=== PATIENT | male | born 1990 | race Caucasian/White ===

== ENCOUNTER 2022-11-07 10:17 | Inpatient (IN) | payer OTHER ==
[2022-11-07 10:51] VITALS: BMI 21.2
[2022-11-07] MEDS ORDERED: ACETAMINOPHEN 325 MG TABLET (FP) PO PRN (18:21)
[2022-11-07] MEDS ORDERED: BENZOCAINE/MENTHOL (CHLORASEPTIC ) LOZENGE MM PRN (18:21)
[2022-11-07] MEDS ORDERED: MAG HYDROX/AL HYDROX/SIMETH 30 ML UNIT-DOSE CUP PO PRN (18:21)
[2022-11-07] MEDS ORDERED: NICOTINE 10 MG CARTRIDGE (INHALER) IH PRN (18:21)
[2022-11-07] MEDS ORDERED: NALOXONE HCL (KLOXXADO) 8 MG SPRAY NS PRN (18:21)
[2022-11-07] MEDS ORDERED: BENZONATATE 200 MG CAPSULE PO PRN (18:21)
[2022-11-07] MEDS ORDERED: BISMUTH SUBSALICYLATE 524 MG/30 ML PO PRN (18:21)
[2022-11-07] MEDS ORDERED: DICYCLOMINE HCL 10 MG CAPSULE PO PRN (18:21)
[2022-11-07] MEDS ORDERED: LOPERAMIDE HCL 2 MG CAPSULE PO PRN (18:21)
[2022-11-07] MEDS ORDERED: IBUPROFEN 600 MG TABLET (FP) PO PRN (18:21)
[2022-11-07] MEDS ORDERED: MAGNESIUM HYDROX 2400MG/30ML ORAL SUSPENSION 30 ML CUP PO PRN (18:21)
[2022-11-07] MEDS ORDERED: POLYETHYLENE GLYCOL (HEALTHYLAX) 3350 17 GM PACKET PO PRN (18:21)
[2022-11-07] MEDS ORDERED: NALOXONE HCL 0.4 MG/ML VIAL IM PRN (18:21)
[2022-11-07] MEDS ORDERED: P-EPHED 60MG/TRIPROLIDI 2.5MG TABLET PO PRN (18:21)
[2022-11-07] MEDS ORDERED: IBUPROFEN 400 MG TABLET (FP) PO PRN (18:21)
[2022-11-07] MEDS ORDERED: guaiFENesin 600 MG TABLET.ER (FP) PO PRN (18:21)
[2022-11-07] MEDS ORDERED: NICOTINE POLACRILEX 2 MG GUM BUC PRN (18:21)
[2022-11-07] MEDS ORDERED: cloNIDine HCL 0.1 MG TABLET PO PRN (18:24)
[2022-11-07] MEDS ORDERED: methaDONE HCL 10 MG TABLET (FOR DETOX USE ONLY) PO ONE (18:24)
[2022-11-07] MEDS ORDERED: ONDANSETRON *ODT* 4 MG TABLET ONE (19:03)
[2022-11-07] MEDS: ONDANSETRON *ODT* 4 MG TABLET SL PRN (19:05)
[2022-11-07] MEDS ORDERED: methaDONE HCL 10 MG TABLET (FOR DETOX USE ONLY) ONE (19:17)
[2022-11-07] MEDS ORDERED: TRIMETHOBENZAMIDE HCL 200MG/2ML INJ IM ONE ×3 (20:45→21:15)
[2022-11-07] MEDS: MELATONIN 5 MG TABLETS PO PRN (22:46)
[2022-11-07] MEDS: THIAMINE HCL 100 MG TABLET (FP) PO SCH (22:46)
[2022-11-07] MEDS: hydrOXYzine PAMOATE 25 MG CAPSULE (FP) PO PRN (22:47)
[2022-11-07] MEDS: AMOX TR/POT CLAV 500MG/125MG TABLETS (FP) PO SCH (22:47)
[2022-11-07] MEDS: METHOCARBAMOL 500 MG TABLET PO PRN (22:47)
[2022-11-08] MEDS: hydrOXYzine PAMOATE 25 MG CAPSULE (FP) PO PRN ×2 (07:50→23:10)
[2022-11-08] MEDS: METHOCARBAMOL 500 MG TABLET PO PRN ×2 (07:50→23:10)
[2022-11-08] MEDS: ONDANSETRON *ODT* 4 MG TABLET SL PRN (07:52)
[2022-11-08] MEDS: PRENATAL VITAMINS W/ FOLIC ACID TABLET (FP) PO SCH (10:32)
[2022-11-08] MEDS: AMOX TR/POT CLAV 500MG/125MG TABLETS (FP) PO SCH ×2 (10:32→23:09)
[2022-11-08 11:59] LABS: HEMATOCRIT 37.9 % (35.4-49); HEMOGLOBIN 12.9 GM/dL (11.7-16.9); MCH 28.9 pg (25.7-33.7); MEAN PLT VOLUME 8.1 fl (7.5-11.1); PLATELET COUNT 386 10^3/uL (134-434); RBC 4.45 M/mm3 (4.00-5.60); RDW 14.4 % (11.9-15.9); WHITE BLOOD COUNT 8.5 K/mm3 (4.0-10.0)
[2022-11-08 12:09] LABS: ALBUMIN 3.4 g/dl (3.4-5.0); BLOOD UREA NITROGEN 13.6 mg/dL (7-18); CALCIUM 9.5 mg/dL (8.5-10.1)
[2022-11-08 12:12] LABS: CREATININE 0.6 mg/dL (0.55-1.3)
[2022-11-08 12:14] LABS: BILIRUBIN,TOTAL 0.4 mg/dL (0.2-1); TOT PROT 7.6 g/dl (6.4-8.2)
[2022-11-08] MEDS: MELATONIN 5 MG TABLETS PO PRN (23:09)
[2022-11-08] MEDS: THIAMINE HCL 100 MG TABLET (FP) PO SCH (23:10)
[2022-11-09] MEDS: PRENATAL VITAMINS W/ FOLIC ACID TABLET (FP) PO SCH (09:58)
[2022-11-09] MEDS ORDERED: methaDONE HCL 10 MG TABLET (FOR DETOX USE ONLY) PO ONE (10:00)
[2022-11-09] MEDS: AMOX TR/POT CLAV 500MG/125MG TABLETS (FP) PO SCH (10:00)
[2022-11-09] MEDS: METHOCARBAMOL 500 MG TABLET PO PRN (10:00)
[2022-11-09] MEDS: hydrOXYzine PAMOATE 25 MG CAPSULE (FP) PO PRN (10:01)
[2022-11-09 13:27] VITALS: BP 106/71; PULSE 72; RESP 17; TEMP 96
[2022-11-11] MEDS ORDERED: methaDONE HCL 10 MG TABLET (FOR DETOX USE ONLY) PO ONE (10:00)
== END 2022-11-09 15:07 | disposition left against medical advice (07) | DRG 770 ==
LOC: YASAS 10:17 → Y3N 18:33
PROVIDERS: ADMIT Allergy & Immunology; ATTEND Surgery
PROC: HZ2ZZZZ Detoxification Services for Substance Abuse Treatment (ICD-10-PCS; principal; 2022-11-07)
DX: F11.23 Opioid dependence with withdrawal (principal); F14.20 Cocaine dependence, uncomplicated; F17.210 Nicotine dependence, cigarettes, uncomplicated; L02.414 Cutaneous abscess of left upper limb; Z59.02 Unsheltered homelessness; Z56.0 Unemployment, unspecified
CPT/HCPCS: 36415; 80053; 85027; 86780; C9803-CS; Q0162; U0003; U0005

== ENCOUNTER 2022-11-07 12:52 | Emergency (ER) | payer OTHER ==
[2022-11-07 13:34] VITALS: BP 120/72; PULSE 105; RESP 18; TEMP 98.6; BMI 22.0
== END 2022-11-07 16:54 | disposition home or self-care (01) ==
LOC: JERFT 12:52
PROC: 0H9EXZZ Drainage of Left Lower Arm Skin, External Approach (ICD-10-PCS; principal; 2022-11-07)
DX: L02.414 Cutaneous abscess of left upper limb (principal)
CPT/HCPCS: 99282-25